=== PATIENT | female | born 1940 | race Hispanic/Latino ===

== ENCOUNTER 2016-11-26 08:35 | Day surgery (SDC) | payer MEDICARE ==
[2012-10-17 12:14] VITALS: BMI 25.6
[2016-11-26 09:56] LABS: GFR AFRICAN-AMERICAN > 60; GFR NON-AFRICAN AMERICAN > 60
[2016-11-26 09:57] LABS: BLOOD UREA NITROGEN 18 mg/dL (7-17); CALCIUM 8.8 mg/dl (8.6-10.4)
[2016-11-26] MEDS ORDERED: Lactated Ringer's 1,000 ML IV ONE ×2 (10:12)
[2016-11-26] MEDS ORDERED: Propofol 10 mg/ml Inj (20 ML) ONE (12:43)
[2016-11-26] MEDS ORDERED: Midazolam 2 MG/2 ML VIAL ONE (12:43)
--- NOTE | 2016-11-26 13:20 | PCM.SURG1 ---
Surgeon's Initial Post Op Note - Surgeon's Notes Surgeon: Dodie Wetzel MD Copper Etcher: none Type of Anesthesia: General Endo Pre-Operative Diagnosis: Postmenopausal bleeding Operative Findings: cystocele Stage II, Rectocele Stage II, no identifiable cervical os, opening, urine output 30 cc clear yellow urine, procedure abortred as did not feel safe to proceed Post-Operative Diagnosis: same as above Operation Performed: Exam under anesthesia, attempted diltion and currettage Specimen/Specimens Removed: none Estimated Blood Loss: EBL {In ML}: 0 Blood Products Given: N/A Drains Used: No Drains Post-Op Condition: Good Date of Surgery/Procedure: 11/26/16 Time of Surgery/Procedure: 13:00
[2016-11-26] MEDS ORDERED: HYDROmorphone 0.5 mg/0.5 ml ISec IVP PRN (13:23)
[2016-11-26 15:05] VITALS: BP 135/60; PULSE 50; RESP 8; TEMP 97.4; O2SAT 99
--- NOTE | 2016-12-08 10:39 | OP ---
PROCEDURE DATE: 11/26/2016 PREOPERATIVE DIAGNOSIS: Postmenopausal bleeding. POSTOPERATIVE DIAGNOSIS: Postmenopausal bleeding. PROCEDURE: Procedure aborted as did not feel safe to proceed as no clear cervical os identified and risk of perforation outweigh the risk of benefit. OPERATION PERFORMED: Exam under anesthesia, attempted dilation curettage. SURGEON: Dr. Dodie Wetzel. GRISTMILLER: None. TYPE OF ANESTHESIA: General endotracheal. FINDINGS: Cystocele stage II, rectocele stage II, no identifiable cervical os opening. ESTIMATED BLOOD LOSS: Zero. BLOOD PRODUCTS: None. URINE OUTPUT: 30 mL of clear yellow urine. COMPLICATIONS: None. SPECIMEN REMOVED: None. DESCRIPTION OF PROCEDURE: The patient was taken to the operating room where she was given general anesthesia and once it was found to be adequate she was positioned in the operating room in dorsal position with legs support using stirrup. The patient was then prepped and draped in the usual sterile fashion and a time-out confirmed correct patient and correct procedure. A bimanual exam was performed with the above-mentioned findings. A red rubber catheter was inserted through the ureter to drain the bladder. Following this a Rm retractor was placed into the posterior and anterior corners of the vagina and there was no identifiable cervical tissue identified. Retractors were removed and a bimanual exam was performed and again, there was no clear cervical tissue or cervical os identified. An anterior cystocele was identified, continuous with the vaginal tissue, continuous with the rectum ------ rectocele performed. An additional CONSOLE OPERATOR was called for a second opinion who recommended aborting procedure as risk of perforation outweighed any potential benefit. All instruments were removed. At the end of the procedure, needle, sponges and instrument counts noted x2. The patient tolerated the exam very well without any complications. The patient was woken up and transferred to the OR recovery room in stable condition. The operative findings were discussed with the patient's family and the patient and again at a later postop visit. At the end of the procedure, patient was referred to CONSOLE OPERATOR/Oncologist for further intervention. Dodie Wetzel MD
== END 2016-11-26 15:35 | disposition home or self-care (01) ==
LOC: C.SDS 08:35
PROVIDERS: ATTEND Obstetrics & Gynecology
DX: N95.0 Postmenopausal bleeding (principal); N84.0 Polyp of corpus uteri; N81.10 Cystocele, unspecified; N81.6 Rectocele
CPT/HCPCS: 36415; 57410; 80048; 82948; J2250; J2704; J3010; J7120